=== PATIENT | male | born 1980 | race Caucasian/White ===

== ENCOUNTER 2021-03-14 18:15 | Emergency (ER) | payer OTHER, MEDICAID, SELFPAY ==
[2021-03-14 18:44] VITALS: BP 139/95; PULSE 105; RESP 16; TEMP 36.8; O2SAT 99; BMI 29.9
[2021-03-14 19:05] LABS: COVID19 -Nasal RAPID Negative (Negative)
--- NOTE | 2021-03-14 20:54 | ED_ITS ---
HPI - URI/Sore Throat General Chief Complaint: Upper Respiratory Symptoms Stated Complaint: cough, hard to breathe Time Seen by Provider: 03/14/21 20:36 Source: patient Mode of arrival: Ambulatory Limitations: no limitations History of Present Illness HPI Narrative: This is a 40-year-old male who comes emergency department with complaint of cough which has now developed some yellow sputum over the past 4-5 days. Patient states it 1st started as sort of a dry cough. He felt like it has been a little bit hard to breathe. He has been afebrile. He has had quite a bit of nasal congestion. Patient has not had any lightheadedness or passing out. He has not had any nausea vomiting. He is mildly constipated. He has had normal urination. Patient is vaccinated but has just received his vaccination recently. Patient does use tobacco. He does not take any daily medications. Related Data Previous Rx's Medication Instructions Recorded sulfamethoxazole 800 1 tab PO BID 7 Days #0 tab 09/15/17 mg-trimethoprim 160 mg tablet hydrocodone 5 mg-acetaminophen 325 1 - 2 tab PO Q6HP PRN #10 tab 09/18/17 mg tablet ([place]) Allergies Allergy/AdvReac Type Severity Reaction Status Date / Time No Known Allergies Allergy Uncoded 11/16/17 11:46 Review of Systems Review of Systems ROS Unobtainable: All systems reviewed & are unremarkable except as noted in HPI and below Patient History Social History Smoking Status: Current every day smoker Smoking Status: Current every day smoker tobacco type: cigarettes Substance Use Type: marijuana and amphetamines Exam Narrative Exam Narrative: GEN: well nourished, well appearing male, alert and oriented x 3, patient appears to be in mild distress. HEENT: Atraumatic, pupils are equal round reactive to light, extraocular movements are intact, nares bilateral rhinorrhea, TMs are clear with no fluid, there is no conjunctival pallor. Throat is clear without any exudates, erythema, tonsillar enlargement or uvular deviation, mild postnasal drainage. HEART: Regular rate and rhythm without murmur, clicks, rubs. LUNGS:Lungs clear to auscultation, no wheezes, rales, crackles, chest moves symmetrically, no tachypnea, accessory muscle use. ABD:bowel sounds normal, soft, non-tender, no guarding, rebound, rigidity, no masses noted, no hepatosplenomegaly :No CVA tenderness MSCL: Non-tender, full range of motion, normal gait NEURO:CN 2-12 intact, sensation normal SKIN: No rash, erythema or other skin changes. Initial Vital Signs Initial Vital Signs: Vital Signs Temperature 98.2 F 03/14/21 18:44 Pulse Rate 105 H 03/14/21 18:44 Respiratory Rate 16 03/14/21 18:44 Blood Pressure 139/95 H 03/14/21 18:44 Pulse Oximetry 99 03/14/21 18:44 Course Orders Ordered: ED Orders 03/14/21 18:47 COVID19 -Nasal swab/Pre-Proc Stat Vital Signs Vital signs: Vital Signs - 8 hr 03/14/21 21:48 Temperature 98.6 F Pulse Rate 98 H Respiratory Rate 22 Blood Pressure 171/88 H Pulse Oximetry 99 MDM - URI/Sore Throat Lab Data Labs: Lab Results 03/14/21 Range/Units 18:47 SARS-CoV-2 (PCR) Negative (Negative) MDM Narrative Medical decision making narrative: 40-year-old male with complaint of cough and yellowish sputum it has been going on for several days. Patient is COVID negative. Patient's exam is normal. And for watchful waiting and patient to return if worsening. Discharge Plan Departure Patient Disposition: Home Clinical Impression: Acute upper respiratory infection Instructions: DI for Viral Upper Respiratory Infection -- Adult Activity Restrictions/Additional Instructions: Follow-up in a week if your symptoms are not improving. Viral illnesses typically take 7-10 days to resolve from onset of symptoms. You can use npip-ylp-bhssyll antihistamines such as Claritin once daily if you find these helpful. You may take Tylenol and/or ibuprofen as needed for pain. Please return for fevers, severe headaches, passing out, worsening chest pain, shortness of breath, persistent vomiting, or other new or concerning symptoms. Prescriptions: No Action sulfamethoxazole-trimethoprim 800 MG/160 MG tablet 1 tab PO BID 7 Days Qty: 0 RF: 0 hydrocodone-acetaminophen [[place]] 5 MG/325 MG tablet 1 - 2 tab PO Q6HP PRNQty: 10 RF: 0
[2021-03-14 21:48] VITALS: BP 171/88; PULSE 98; RESP 22; TEMP 37; O2SAT 99
== END 2021-03-14 21:49 | disposition home or self-care (01) ==
PROVIDERS: Emergency Provider Emergency Medicine
DX: J06.9 Acute upper respiratory infection, unspecified (principal); R05 Cough; R06.00 Dyspnea, unspecified
CPT/HCPCS: 87635; 99281; 99282; C9803

== ENCOUNTER 2021-05-29 10:03 | Emergency (ER) | payer OTHER, MEDICAID, SELFPAY ==
[2021-05-29 10:15] VITALS: BP 141/85; PULSE 113; RESP 18; TEMP 37.1; O2SAT 99
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
[2021-05-29] MEDS: OLANZapine ODT 10 MG TAB PO (11:03)
[2021-05-29 11:27] LABS: Add Manual Diff / Slide Review NO; Basophils Absolute Auto 0 /uL (0-100); Basophils Percent Auto 0.8 % (0-2); Eosinophils Absolute Auto 100 /uL (0-450); Eosinophils Percent Auto 2.4 % (2-4); Hematocrit 42.1 % (41-53); Lymphocytes Absolute Auto 1400 /uL (1100-4500); Lymphocytes Percent Auto 29.2 % (25-40); Mean Corpuscular HGB Conc 33.2 % (30-36); Mean Corpuscular Hemoglobin 28.1 PG (26-34); Mean Corpuscular Volume 84.8 fL (80-100); Monocytes Absolute Auto 500 /uL (0-900); Monocytes Percent Auto 10.1 % (3-14); Neutrophils Absolute Auto 2800 /uL (1500-7000); Neutrophils Percent Auto 57.5 % (50-75); Platelet Count 178 X10^3/uL (150-400); Red Blood Cell Count 4.96 X10^6/uL (4.5-5.9); Red Cell Distribution Width 13.4 % (11.6-14.8); White Blood Cell Count 4.8 X10^3/uL (4.5-11.0)
[2021-05-29 11:38] LABS: Ur Creatinine Normal (Normal); Ur Specific Gravity Normal (Normal); Urine pH Normal (Normal)
[2021-05-29 11:39] LABS: UR Morphine/Opiate cutoff 300 Negative (Negative); Urine Amphetamines Positive (Negative); Urine Barbiturates Negative (Negative); Urine Benzodiazepines Positive (Negative); Urine Cocaine Negative (Negative); Urine MDMA Negative (Negative); Urine Methadone Negative (Negative); Urine Methamphetamines Positive (Negative); Urine Oxycodone Negative (Negative); Urine Phencyclidine Negative (Negative); Urine Tetrahydrocannabinol Positive (Negative); Urine Tricyclic Antidepressant Negative (Negative)
[2021-05-29 11:44] LABS: Alanine Aminotransferase 47 IU/L (<50); Albumin 4.6 g/dL (3.5-5.0); Albumin Globulin Ratio 1.6 (1.0-2.8); Alkaline Phosphatase 53 U/L (38-126); Aspartate Aminotransferase 44 IU/L (17-59); Bilirubin Total 0.7 mg/dL (0.2-1.3); Blood Urea Nitrogen 13 mg/dL (9-20); Calcium 9.1 mg/dL (8.4-10.2); Carbon Dioxide 30 mmol/L (22-32); Chloride 102 mmol/L (98-107); Estimated Glomerular Filt Rate > 60.0 mL/min (>60); Ethanol (ETOH) < 10 mg/dL; Globulin 2.8 g/dL (1.7-4.1); Glucose 92 mg/dL (70-100); HEMOLYSIS < 15 (0-50); Potassium 4.4 mmol/L (3.4-5.1); Sodium 139 mmol/L (137-145); Total Protein 7.4 g/dL (6.3-8.2)
[2021-05-29 11:53] LABS: Appearance Urine UA CLEAR; Bilirubin Urine UA NEGATIVE (NEGATIVE); Color Urine UA YELLOW; Glucose Urine UA NEGATIVE (Negative); Ketones Urine UA NEGATIVE (NEGATIVE); Leukocyte Esterase Urine UA 2+ (NEGATIVE); Nitrite Urine UA NEGATIVE (Negative); Occult Blood Urine UA TRACE-LYSED (Negative); Protein Urine UA NEGATIVE (Negative); Urobilinogen Urine UA 0.2 E.U./dL (0.2)
[2021-05-29 12:00] LABS: COVID19 -Nasal RAPID Negative (Negative)
[2021-05-29 12:18] LABS: Bacteria Urine None Seen; Culture Indicated Urine Specimen Cultured; RBC Urine None Seen (0-5/HPF); Squamous Epithelial Cell Urine 0-1 /HPF (0-5/HPF); WBC Urine 5-10/HPF (0-5/HPF)
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
[2021-05-29] MEDS: NICOTINE 21 MG PATCH TOP (13:21)
--- NOTE | 2021-05-29 13:27 | CM.SWNOTE ---
Addendum entered by Tita Monk 05/29/21 16:39: PHYSIOTHERAPY AIDE Note PHYSIOTHERAPY AIDE receives call from [facility] intake who reports they can accept patient for tomorrow at 8:00 AM but patient must be transported via EMS. PHYSIOTHERAPY AIDE asks if POV is an option and PHYSIOTHERAPY AIDE is informed it is not an option. PHYSIOTHERAPY AIDE reviews this with patient and patient declines transfer to [facility]. PHYSIOTHERAPY AIDE calls [facility] and schedules PCP ED f/u and establish care appt for patient with Dr. Mcgrath on 06/12/21 at 1pm. Patient and ask about medication for patient upon d/c and PHYSIOTHERAPY AIDE informs patient and that patient can receive referrals for prescriptions when patient is established with PCP. PHYSIOTHERAPY AIDE provides [facility] and MH crisis and service contacts and informs patient to return to the ED if he needs to. Plan: Patient to d/c to home with PCP f/u and to seek out MH and [facility] services. SILAS Bustamante Original Note: PHYSIOTHERAPY AIDE Note PHYSIOTHERAPY AIDE calls [facility], [facility], [facility] in [place], and [place] detox and it is reported that they are full or not accepting patients for a few days. PHYSIOTHERAPY AIDE calls [facility] for a co-occurring bed, it is reported that they are at capacity and may have beds tomorrow or Tuesday. PHYSIOTHERAPY AIDE calls [facility]. intake and it is reported that they have co-occurring beds and can review patient, PHYSIOTHERAPY AIDE faxes clinicals for review. PHYSIOTHERAPY AIDE reviews this with patient and who indicate agreement and understanding. Plan: PHYSIOTHERAPY AIDE to seek co-occurring bed for patient. SILAS Bustamante
[2021-05-29] MEDS: LORazepam 0.5 MG TABLET 1 MG PO (15:17)
== END 2021-05-29 17:12 | disposition home or self-care (01) ==
PROVIDERS: Emergency Provider Emergency Medicine
DX: F15.10 Other stimulant abuse, uncomplicated (principal); F31.9 Bipolar disorder, unspecified; R03.0 Elevated blood-pressure reading, without diagnosis of hypertension; Z20.822 Contact with and (suspected) exposure to COVID-19
CPT/HCPCS: 36415; 80053; 80305; 80320; 81001; 85025; 87077; 87086; 87635; 93005; 93010; 99284; C9803